=== PATIENT | female | born 1945 | race American Indian/Alaskan Native ===

== ENCOUNTER 2016-12-02 13:00 | Outpatient (CLI) | payer MEDICARE | END 2016-12-02 13:01 | disposition home or self-care (01) | LOC: PET 13:00 | PROVIDERS: ATTEND Internal Medicine Hematology | DX: C83.39 Diffuse large B-cell lymphoma, extranodal and solid organ sites (principal) | CPT/HCPCS: 82962 ==

== ENCOUNTER 2017-02-24 09:19 | Outpatient (CLI) | payer MEDICARE ==
--- NOTE | 2017-02-24 15:50 | PET Report ---
PET SB TO MT SUBSEQUENT: HISTORY: Restaging of lymphoma, monitor response to therapy. TECHNIQUE: 15.7 millicuries F-18 FDG was administered intravenously. Noncontrast CT images and PET images were obtained from the skull base to the proximal thighs. Fused images were reviewed on a workstation. The patient's blood glucose level measured 107. COMPARISON: 12/09/16. FINDINGS: BRAIN: physiologic FDG uptake in the imaged brain. NECK: physiologic FDG uptake. MEDIASTINUM: physiologic FDG uptake. LUNGS: physiologic FDG uptake. PLEURA/PERICARDIUM: physiologic FDG uptake. THORACIC LYMPH NODES: physiologic FDG uptake. HEPATOBILIARY: physiologic FDG uptake. Mean liver SUV measures . PANCREAS: physiologic FDG uptake. SPLEEN: physiologic FDG uptake. ADRENAL GLANDS: physiologic FDG uptake. KIDNEYS/RENAL COLLECTING SYSTEMS: physiologic FDG uptake. The bladder remains distended which is unchanged. BOWEL/MESENTERY: physiologic FDG uptake. PELVIC VISCERA: physiologic FDG uptake. ABDOMINAL/PELVIC LYMPH NODES: physiologic FDG uptake. Abdominal adenopathy has resolved. MUSCULOSKELETAL: Marrow stimulation changes are suspected.. IMPRESSION: Dramatic positive response to therapy since 12/09/16. The previously described coalescent lymph nodes throughout the mesentery and retroperitoneum have resolved. No disease is demonstrated on today's exam.
== END 2017-02-24 09:20 | disposition home or self-care (01) ==
LOC: PET 09:19
PROVIDERS: ATTEND Internal Medicine Hematology & Oncology
DX: C83.39 Diffuse large B-cell lymphoma, extranodal and solid organ sites (principal)
CPT/HCPCS: 78815; A9552

== ENCOUNTER 2017-03-03 14:22 | Outpatient (CLI) | payer MEDICARE ==
--- NOTE | 2017-03-03 17:16 | Vascular Lab Report ---
RIGHT UPPER EXTREMITY VENOUS DUPLEX: REASON FOR EXAM: Right arm pain COMMENTS ON THE RIGHT: All arm veins visualized are freely compressible without evidence of internal echogenicity. The subclavian and internal jugular veins are free of thrombus. Flow is spontaneous and phasic throughout. COMMENTS ON THE LEFT: The subclavian and internal jugular veins are free of thrombus. IMPRESSION: No evidence of acute or chronic deep venous thrombosis in the right upper extremity.
== END 2017-03-03 14:23 | disposition home or self-care (01) ==
LOC: VAS 14:22
PROVIDERS: ATTEND Internal Medicine Hematology
DX: T84.84XA Pain due to internal orthopedic prosthetic devices, implants and grafts, initial encounter (principal); M79.601 Pain in right arm; C83.39 Diffuse large B-cell lymphoma, extranodal and solid organ sites

== ENCOUNTER 2017-05-05 10:12 | Outpatient (CLI) | payer MEDICARE ==
--- NOTE | 2017-05-09 08:36 | PET Report ---
PET/CT:05/05/17 10:12:00 CLINICAL: Diffuse large B-cell lymphoma. RADIOPHARMACEUTICAL: 12.33mCi F18-FDG. COMPARISON: 02/24/17 PET/CT TECHNIQUE- Following intravenous injection of F-18 FDG and an approximately 60 minute uptake period, CT and PET images from the mid skull to the upper thighs were acquired with the patient in the fasted state. No contrast was administered. The CT protocol used for this PET CT study is designed for attenuation correction and anatomic localization of PET abnormalities. This card setter CT is not desired to produce and cannot replace, fwdhk-hx-lgg-art diagnostic CT scans with specific imaging protocols for different body parts and indications. Plasma glucose at the time of this test: 98g/dl. The standardized uptake values (SUV) are normalized to patient body weight and indicate the highest activity concentration (SUV max) in a given disease site. FINDINGS: Brain--Physiologic FDG uptake in the visualized regions of the brain. Neck--Physiologic FDG uptake . Multinodular thyroid with greater enlargement of the right lobe and the left. Chest--Physiologic FDG uptake in mediastinal blood pool and myocardium. Lungs--No abnormal uptake. No pulmonary nodule or mass. Pleura/pericardium--No abnormal uptake. Thoracic nodes--No abnormal uptake. Hepatobiliary--No abnormal uptake. Liver background SUV mean, as a reference for comparing FDG studies, is 5.8 compared to 5.0 on the last exam. Benign hepatic cysts. No liver mass. Spleen--No abnormal uptake. Pancreas--No abnormal uptake. Adrenal Glands--No abnormal uptake. Kidneys/Ureters/Bladder--No abnormal uptake. Abdominopelvic Nodes--No abnormal uptake. A few residual prominent lymph nodes in the small bowel mesentery with no FDG uptake. The largest measures 1.5 x 0.4 cm. Bowel/Peritoneum/Mesentery--No abnormal uptake. Normal right lower quadrant small bowel anastomosis. Diverticulosis of the colon but no diverticulitis. Pelvic organs--No abnormal uptake. The urinary bladder is large with a normal thin wall. Bones/Soft Tissues--No abnormal uptake. Other findings: Stable fat containing umbilical hernia. Status post hysterectomy. Right Qpculv-u-Sibu tip is in the SVC. IMPRESSION- 1. Negative study with no residual FDG avid lymphadenopathy. 2. Benign hepatic cysts. 3. Diverticulosis but no diverticulitis. 4. The degree of distention of the urinary bladder is suggestive of neurogenic bladder with urinary retention.
== END 2017-05-05 10:13 | disposition home or self-care (01) ==
LOC: PET 10:12
PROVIDERS: ATTEND Internal Medicine Hematology
DX: C83.39 Diffuse large B-cell lymphoma, extranodal and solid organ sites (principal)
CPT/HCPCS: 78815; 82962; A9552

== ENCOUNTER 2017-07-27 08:35 | Outpatient (CLI) | payer MEDICARE ==
--- NOTE | 2017-07-28 12:18 | Vascular Lab Report ---
RIGHT UPPER EXTREMITY VENOUS DUPLEX: REASON FOR EXAM: Pain of the right upper extremity COMMENTS ON THE RIGHT: All arm veins visualized are freely compressible without evidence of internal echogenicity. The subclavian and internal jugular veins are free of thrombus. Flow is spontaneous and phasic throughout. COMMENTS ON THE LEFT: The subclavian and internal jugular veins are free of thrombus. IMPRESSION: No evidence of acute or chronic deep venous thrombosis in the right upper extremity.
== END 2017-07-27 08:36 | disposition home or self-care (01) ==
LOC: VAS 08:35
PROVIDERS: ATTEND Internal Medicine Hematology
DX: M79.601 Pain in right arm (principal); C83.39 Diffuse large B-cell lymphoma, extranodal and solid organ sites

== ENCOUNTER 2017-08-11 13:27 | Outpatient (CLI) | payer MEDICARE ==
--- NOTE | 2017-08-15 11:42 | PET Report ---
PET SB TO MT SUBSEQUENT: HISTORY: Lymphoma. TECHNIQUE: 14.2 millicuries F-18 FDG was administered intravenously. Noncontrast CT images and PET images were obtained from the skull base to the proximal thighs. Fused images were reviewed on a workstation. The patient's blood glucose level measured 96. COMPARISON: 05/05/17. FINDINGS: BRAIN: physiologic FDG uptake in the imaged brain. NECK: physiologic FDG uptake. Enlarged and nodular thyroid gland is unchanged. MEDIASTINUM: physiologic FDG uptake. LUNGS: physiologic FDG uptake. PLEURA/PERICARDIUM: physiologic FDG uptake. THORACIC LYMPH NODES: physiologic FDG uptake. HEPATOBILIARY: physiologic FDG uptake. Mean liver SUV measures 6.0. PANCREAS: physiologic FDG uptake. SPLEEN: physiologic FDG uptake. ADRENAL GLANDS: physiologic FDG uptake. KIDNEYS/RENAL COLLECTING SYSTEMS: physiologic FDG uptake. BOWEL/MESENTERY: physiologic FDG uptake. PELVIC VISCERA: physiologic FDG uptake. ABDOMINAL/PELVIC LYMPH NODES: The previously described lymph nodes in the small bowel mesentery within the left abdomen continued to decrease in size. No hypermetabolic lymph nodes are identified. MUSCULOSKELETAL: physiologic FDG uptake. IMPRESSION: Negative PET/CT. Stable findings since 05/05/17.
== END 2017-08-11 13:28 | disposition home or self-care (01) ==
LOC: PET 13:27
PROVIDERS: ATTEND Internal Medicine Hematology
DX: C83.39 Diffuse large B-cell lymphoma, extranodal and solid organ sites (principal); E04.9 Nontoxic goiter, unspecified; Z79.899 Other long term (current) drug therapy
CPT/HCPCS: 78815; 82962; A9552

== ENCOUNTER 2017-11-10 10:04 | Outpatient (CLI) | payer MEDICARE ==
--- NOTE | 2017-11-16 08:30 | PET Report ---
PET SB TO MT SUBSEQUENT: HISTORY: Restaging of lymphoma. TECHNIQUE: 12.3 millicuries F-18 FDG was administered intravenously. Noncontrast CT images and PET images were obtained from the skull base to the proximal thighs. Fused images were reviewed on a workstation. The patient's blood glucose level measured 96. COMPARISON: 08/11/17. FINDINGS: BRAIN: physiologic FDG uptake in the imaged brain. NECK: physiologic FDG uptake. Enlarged and nodular thyroid gland is unchanged. Probable multinodular goiter. MEDIASTINUM: physiologic FDG uptake. LUNGS: physiologic FDG uptake. PLEURA/PERICARDIUM: physiologic FDG uptake. THORACIC LYMPH NODES: physiologic FDG uptake. HEPATOBILIARY: physiologic FDG uptake. Mean liver SUV measures 4.5 as opposed to 6.0 on the previous exam. Multiple bilateral liver cysts or hemangiomas are unchanged. PANCREAS: physiologic FDG uptake. SPLEEN: physiologic FDG uptake. ADRENAL GLANDS: physiologic FDG uptake. KIDNEYS/RENAL COLLECTING SYSTEMS: physiologic FDG uptake. Multiple bilateral renal cysts, left greater than right, are stable. BOWEL/MESENTERY: physiologic FDG uptake. Mild sigmoid diverticulosis is noted. PELVIC VISCERA: physiologic FDG uptake. Hysterectomy changes are suspected. ABDOMINAL/PELVIC LYMPH NODES: physiologic FDG uptake. MUSCULOSKELETAL: physiologic FDG uptake. IMPRESSION: Negative PET/CT. No change since 08/11/17. No lymphadenopathy or hypermetabolic mass is identified on PET imaging.
== END 2017-11-10 10:05 | disposition home or self-care (01) ==
LOC: PET 10:04
PROVIDERS: ATTEND Internal Medicine Hematology & Oncology
DX: C82.39 Follicular lymphoma grade IIIa, extranodal and solid organ sites (principal); E04.9 Nontoxic goiter, unspecified; K76.89 Other specified diseases of liver; N28.1 Cyst of kidney, acquired; K57.30 Diverticulosis of large intestine without perforation or abscess without bleeding
CPT/HCPCS: 78815; 82962; A9552

== ENCOUNTER 2018-02-09 08:25 | Outpatient (CLI) | payer MEDICARE ==
--- NOTE | 2018-02-12 10:08 | PET Report ---
PET/CT:02/09/18 08:25:00 CLINICAL: Lymphoma restaging. RADIOPHARMACEUTICAL: 14.69mCi F18-FDG. COMPARISON: 11/10/17 PET/CT TECHNIQUE- Following intravenous injection of F-18 FDG and an approximately 60 minute uptake period, CT and PET images from the mid skull to the upper thighs were acquired with the patient in the fasted state. No contrast was administered. The CT protocol used for this PET CT study is designed for attenuation correction and anatomic localization of PET abnormalities. This warehouse helper CT is not desired to produce and cannot replace, ykkbb-st-tly-art diagnostic CT scans with specific imaging protocols for different body parts and indications. Plasma glucose at the time of this test: 102g/dl. The standardized uptake values (SUV) are normalized to patient body weight and indicate the highest activity concentration (SUV max) in a given disease site. FINDINGS: Brain--Physiologic FDG uptake in the visualized regions of the brain. Neck--Physiologic FDG uptake in mucosal structures. Enlarged multinodular thyroid with the right lobe of the left. A 2.3 cm left thyroid nodule is more distinct than on prior exams. Chest--Physiologic FDG uptake in mediastinal blood pool and myocardium. Lungs--No abnormal uptake. No pulmonary nodule or mass. Pleura/pericardium--No abnormal uptake. Thoracic nodes--No abnormal uptake. Hepatobiliary--No abnormal uptake. Liver background SUV mean, as a reference for comparing FDG studies, is 5.0 compared to 5.2 on the last exam. Stable benign hepatic cysts. No liver mass. Spleen--No abnormal uptake. The spleen is normal size. Pancreas--No abnormal uptake. Adrenal Glands--No abnormal uptake. Kidneys/Ureters/Bladder--No abnormal uptake. Abdominopelvic Nodes--No abnormal uptake. Bowel/Peritoneum/Mesentery--No abnormal uptake. Pelvic organs--No abnormal uptake. Bones/Soft Tissues--No abnormal uptake. IMPRESSION- A prominent 2.3 cm left thyroid nodule and otherwise negative study. Recommend further evaluation with thyroid ultrasound.
== END 2018-02-09 08:26 | disposition home or self-care (01) ==
LOC: PET 08:25
PROVIDERS: ATTEND Internal Medicine Hematology & Oncology
DX: C83.39 Diffuse large B-cell lymphoma, extranodal and solid organ sites (principal); E04.2 Nontoxic multinodular goiter; K76.89 Other specified diseases of liver
CPT/HCPCS: 78815; 82962; A9552

== ENCOUNTER 2018-02-27 15:10 | Outpatient (CLI) | payer MEDICARE ==
--- NOTE | 2018-02-28 09:41 | Ultrasound Report ---
THYROID ULTRASOUND:02/27/18 15:10:00 CLINICAL: Thyroid nodule identified on PET scan. COMPARISON: 02/09/18 PET/CT FINDINGS: High-resolution ultrasound demonstrated an enlarged multinodular thyroid. The right lobe measures 6.5 x 3.8 x 3.6cm. The left lobe measures 5.4 x 2.7 x 2.7. The isthmus measures 0.5 cm AP thickness. Both thyroid lobes are diffusely nodular with too numerous to count heterogeneous solid nodules and a few cystic nodules. The largest cyst is in the left mid thyroid and measures 2.4 x 2.1 x 1.9. It has some nodularity of its wall wall and correlates with the 2.3 cm hypodense nodule identified on the PET/CT. IMPRESSION: Enlarged multinodular thyroid with too numerous to count solid nodules. A probably benign 2.3 cm predominantly cystic nodule in the mid left thyroid lobe correlates with the hypodense nodule identified on the PET/CT. The absence of FDG uptake on the PET supports this being a benign nodule.
== END 2018-02-27 15:11 | disposition home or self-care (01) ==
LOC: SPVWC 15:10
PROVIDERS: ATTEND Internal Medicine Hematology
DX: C83.39 Diffuse large B-cell lymphoma, extranodal and solid organ sites (principal); E04.2 Nontoxic multinodular goiter
CPT/HCPCS: 76536

== ENCOUNTER 2018-11-30 07:44 | Outpatient (CLI) | payer MEDICARE ==
--- NOTE | 2018-11-30 13:51 | PET Report ---
PET SB TO MT SUBSEQUENT: HISTORY: Restaging of lymphoma. TECHNIQUE: 11.5 millicuries F-18 FDG was administered intravenously. Noncontrast CT images and PET images were obtained from the skull base to the proximal thighs. Fused images were reviewed on a workstation. The patient's blood glucose level measured 109. COMPARISON: 05/11/18. FINDINGS: BRAIN: physiologic FDG uptake in the imaged brain. NECK: physiologic FDG uptake. Enlarged and heterogeneous thyroid gland is unchanged. MEDIASTINUM: physiologic FDG uptake. LUNGS: physiologic FDG uptake. PLEURA/PERICARDIUM: physiologic FDG uptake. THORACIC LYMPH NODES: physiologic FDG uptake. HEPATOBILIARY: physiologic FDG uptake. Scattered liver cysts are unchanged in size and number. Mean liver SUV measures 5.0 as opposed to 4.0 on the previous exam. PANCREAS: physiologic FDG uptake. SPLEEN: physiologic FDG uptake. ADRENAL GLANDS: physiologic FDG uptake. KIDNEYS/RENAL COLLECTING SYSTEMS: Physiologic FDG uptake. Bilateral renal cysts are stable in size and number. BOWEL/MESENTERY: physiologic FDG uptake. PELVIC VISCERA: physiologic FDG uptake. Pelvic floor collapse is suspected. ABDOMINAL/PELVIC LYMPH NODES: physiologic FDG uptake. MUSCULOSKELETAL: physiologic FDG uptake. IMPRESSION: Negative PET/CT. Stable findings since 05/11/18. No evidence for disease recurrence or metastasis.
== END 2018-11-30 07:45 | disposition home or self-care (01) ==
LOC: PET 07:44
PROVIDERS: ATTEND Internal Medicine Hematology
DX: C83.39 Diffuse large B-cell lymphoma, extranodal and solid organ sites (principal)
CPT/HCPCS: 78815; 82962; A9552

== ENCOUNTER 2019-06-14 12:47 | Outpatient (CLI) | payer MEDICARE ==
--- NOTE | 2019-06-14 16:24 | PET Report ---
PET CT Indication: Lymphoma restaging Technique: A total of 15.349 mCi F-18 FDG injected IV per protocol into the left arm at 1317 a.m. the scan one hour later. The patient's blood glucose measured 98 mg/dL.. The scan occurred from the skul l base to the upper thighs. Comparison: 11/30/2018 Findings: No abnormal radiotracer uptake is identified within the head/neck, chest, abdomen or pelvis . No adenopathy identified within the chest abdomen or pelvis. There is expected GI and excretion of radiotracer. No abnormal osseous uptake is appreciated. Incidental note is made of uterine prolaps e. IMPRESSION: No evidence of local recurrence or metastatic disease. No significant change from 11/30/19 19. Signer Name: Olu Walton MD Signed: 06/14/2019 4:19 PM Workstation Name: [id number]
== END 2019-06-14 12:48 | disposition home or self-care (01) ==
LOC: PET 12:47
PROVIDERS: ATTEND Internal Medicine Hematology
DX: C83.39 Diffuse large B-cell lymphoma, extranodal and solid organ sites (principal)
CPT/HCPCS: 78815; 82962; A9552

== ENCOUNTER 2021-02-26 08:16 | Outpatient (CLI) | payer MEDICARE ==
--- NOTE | 2021-02-26 12:52 | PET Report ---
PET CT Indication: Lymphoma restaging Technique: A total of 13.074 mCi F-18 FDG injected IV per protocol into the right hand at 908 with sc an time of 9:55 AM on the same day. CT was utilized for dose attenuation and anatomic localization.. The scan occurred from the skull base to the upper thighs. Comparison: 06/14/2019 Findings: No abnormal radiotracer uptake is identified within the head/neck, chest, abdomen or pelvis . There is expected GI and excretion of radiotracer. No abnormal osseous uptake is appreciated. In cidentally there is evidence of multinodular goiter, similar to multiple prior exams. Some of these t hyroid nodules containing coarse calcifications, similar to the prior exam. Multiple cysts identified within both kidneys. Several simple cysts are present within the liver as well, similar to the prior exam. There is a fat-containing periumbilical hernia. Finally there is evidence of prominent pelvic prolapse. IMPRESSION: 1. No evidence of local recurrence or metastatic disease. No significant change from 06/14/2019. 2. Complex appearing right thyroid nodules, similar to 06/14/2019. Continued attention on follow-up soler ggested. Signer Name: Olu Walton MD Signed: 02/26/2021 12:48 PM Workstation Name: [id number]
== END 2021-02-26 08:17 | disposition home or self-care (01) ==
LOC: PET 08:16
PROVIDERS: ATTEND Internal Medicine Hematology
DX: C83.89 Other non-follicular lymphoma, extranodal and solid organ sites (principal); E04.1 Nontoxic single thyroid nodule; N28.1 Cyst of kidney, acquired; K76.89 Other specified diseases of liver; K42.9 Umbilical hernia without obstruction or gangrene
CPT/HCPCS: 78815; 82962; A9552